=== PATIENT | male | born 1980 | race Caucasian/White ===

== ENCOUNTER 2018-11-10 19:43 | Observation (INO) ==
--- NOTE | 2018-11-10 20:10 | Emergency Department Note ---
Disposition Clinical Impression: Dehydration Disposition: Admitted As Inpatient Condition: Fair Referrals: NONE,PCP [Non-Partnered Physician] - Forms: ED Satisfaction Letter, Work/School Release Time of Disposition: 22:15 General Adult HPI - General Chief complaint: ED General Medical Stated complaint: Not eating X 3 days, no BM x 3 days Time Seen by Provider: 11/10/18 19:56 Source: family Mode of arrival: private vehicle Limitations: no limitations Nursing Notes Reviewed: Yes Vital Signs Reviewed: Yes - History of Present Illness HPI Narrative: Patient has history of cervical palsy, wheelchair bound, nonverbal. Over the past 3 days he has not been eating. He has not had a bowel movement in 3 days. Normally he has a bowel movement every other day. He seems to be calling out in discomfort but he calls out for any kind of discomfort and is not specific for pain versus anything else. They have not noted any associated fevers or vomiting. They do note that he is not as active as usual. He saw his laboratory inspector today and they advised to have him brought here for evaluation for bowel obstruction. Pt Subjective Complaint: Not eating and constipated and calling out in discomfort Pain Scale: 0 - Related Data Home Medications Medication Instructions Recorded Confirmed Cholecalciferol (D-3) [Vitamin D] 2,000 unit PO DAILY 08/21/17 11/10/18 Dantrolene Sodium [Dantrium] 25 mg PO BID 08/21/17 11/10/18 Divalproex (12 HR) [Depakote (12 1,500 mg PO HS 08/21/17 11/10/18 HR)] Divalproex (12 HR) [Depakote (12 500 mg PO [facility] 08/21/17 11/10/18 HR)] LevETIRAcetam [Keppra] 500 mg PO BID 08/21/17 11/10/18 PHENobarbital [Phenobarbital] 60 mg PO HS 08/21/17 11/10/18 risperiDONE [Risperdal] 0.25 mg PO BID 08/21/17 11/10/18 Crestor 10 mg PO DAILY 11/15/17 11/10/18 Lamotrigine 10 mg PO BID 11/15/17 11/10/18 Albuterol Sulfate [Albuterol 2 puff IH Q4HR PRN 11/10/18 11/10/18 Inhaler] Aspirin [Lo-Dose Aspirin EC] 81 mg PO DAILY 11/10/18 11/10/18 Bifidobacterium Infantis [Align] 10.5 mg PO DAILY 11/10/18 11/10/18 Icosapent Ethyl [Vascepa] 1 gm PO BID 11/10/18 11/10/18 Insulin Glargine [Lantus] 20 unit SQ DAILY 11/10/18 11/10/18 Losartan Potassium 25 mg PO DAILY 11/10/18 11/10/18 Melatonin 10 mg PO DAILY 11/10/18 11/10/18 Repaglinide [Prandin] 1 mg PO DAILY 11/10/18 11/10/18 SitaGLIPtin [Januvia] 100 mg PO DAILY 11/10/18 11/10/18 Allergies Allergy/AdvReac Type Severity Reaction Status Date / Time No Known Allergies Allergy Verified 11/15/17 09:52 Constitutional: Denies: fever Respiratory: Denies: cough, dyspnea Gastrointestinal: Reports: constipation. Denies: vomiting Integumentary: Denies: rash Past Medical History - Past Medical History Attestation: Yes The following information was validated with the patient. Source: old records reviewed, obtained from family, nursing notes reviewed Medical history: Reports: diabetes, seizures, other Surgical history: Reports: non-contributory Psychiatric history: Reports: no psych history - Social History Smoking Status: Never smoker Smokeless Tobacco Status: No Alcohol use: Reports: none Drug use: Reports: none Physical Exam - General Limitations: no limitations General appearance: alert, in no apparent distress - Head Head exam: atraumatic, normocephalic, normal inspection - Eye Eye exam: Present: normal appearance, PERRL, EOMI. Absent: scleral icterus, conjunctival injection - ENT ENT exam: normal exam, normal oropharynx, mucous membranes moist, normal external ear exam - Neck Neck exam: Present: trachea midline. Absent: tenderness - Chest Chest inspection: Present: normal inspection, symmetric chest wall rise. Abs ent: tenderness - Respiratory Respiratory exam: Present: normal lung sounds bilaterally. Absent: respiratory distress, wheezes - Cardiovascular Cardiovascular exam: Present: normal rhythm, tachycardia, normal heart sounds - Abdominal Exam Abdominal exam: Present: soft, Non-Tender, diminished bowel sounds. Absent: distention - Extremities Exam Extremities exam: Present: other (Chronic lymphedema to bilateral lower extremities.) - Neurological Exam Neurological exam: Present: alert - Skin Skin exam: Present: warm, dry. Absent: rash Course Course Narrative: Nonverbal patient presents with not eating for couple of days and no bowel movement for couple of days. Not having a bowel movement for 3 days when he normally have a bowel movement every 2 days is not sounding like a big concern. His belly is not distended. He does not appear to have any tenderness palpation of his belly. However he did have diminished bowel sounds. Is also not eating but is not vomiting either. History is difficult and physical exam is difficult. We will do a workup including imaging. Disposition will be based on diagnostic results and reevaluation. - Reevaluation(s) Reevaluation #1: CT did not show any acute pathology. Blood work shows hemoconcentration and a bicarbonate of only 9. Urine shows dehydration as well. With these numbers and the patient's mental status, were not admitted to the hospital for IV hydration. I discussed the case with the hospice already. Time: 22:15 - Consultations Consultation #1: Dr. Emerson, hospitalist - discussed the case with the hospice. Patient will be admitted to the hospital for hydration and management. Time: 22:15 Vital Signs Temperature 97.7 F 11/10/18 19:45 Pulse Rate 120 11/10/18 19:45 Respiratory Rate 18 11/10/18 19:45 Blood Pressure 127/75 11/10/18 19:45 O2 Sat by Pulse Oximetry 98 11/10/18 19:45 Temperature 97.7 F 11/10/18 19:45 Pulse Rate 120 11/10/18 19:45 Respiratory Rate 18 11/10/18 19:45 Blood Pressure 127/75 11/10/18 19:45 O2 Sat by Pulse Oximetry 98 11/10/18 19:45 Oxygen Delivery Oxygen Delivery Room Air Medical Decision Making - Lab Data Lab results reviewed: Yes I reviewed the patient's lab results. Result diagrams: 11/10/18 20:49 11/10/18 20:49 Lab Results 11/10/18 11/10/18 11/10/18 Range/Units 20:25 20:49 20:49 WBC 6.0 (4.3-11.1) K/mcL RBC 5.68 H (4.19-5.50) M/mcL Hgb 18.4 H (12.9-16.9) g/dL Hct 53.9 H (37.5-50.1) % MCV 94.9 (83.0-100.0) fL MCH 32.4 (28.0-33.3) pg MCHC 34.1 (31.6-35.5) g/dL RDW 14.5 (11.5-14.5) % Plt Count 180 (140-400) K/mcL MPV 9.6 (9.4-12.4) fL Immature Gran % 3.7 (0-4) % Seg Neutrophils % 58.1 % Lymphocytes % 26.6 % Monocytes % 10.1 % Eosinophils % 0.3 % Basophils % 1.2 % Neutrophils # 3.5 (1.6-8.9) K/mcL Lymphocytes # 1.6 (0.6-4.6) K/mcL Monocytes # 0.6 (0.0-1.3) K/mcL Eosinophils # 0.0 (0.0-0.6) K/mcL Basophils # 0.1 (0.0-0.2) K/mcL Sodium 137 (136-145) mEq/L Potassium 3.6 (3.5-5.1) mEq/L Chloride 102 (98-107) mEq/L Carbon Dioxide 9 L* (23-29) mEq/L BUN 5 L (6-20) mg/dL Creatinine 0.91 (0.70-1.30) mg/dL Est GFR ( Amer) > 60 (> 60) Est GFR (Non-Af Amer) > 60 (> 60) BUN/Creatinine Ratio 5 L (6-26) Glucose 247 H (70-105) mg/dL Calculated Osmolality 290 (280-300) Lactic Acid (0.5-2.2) mmol/L Calcium 10.3 (8.6-10.3) mg/dL Total Bilirubin 0.4 (0.3-1.0) mg/dL Direct Bilirubin 0.1 (0.0-0.2) mg/dL Indirect Bilirubin 0.3 (0.0-1.2) mg/dL AST 13 (13-39) Units/L ALT 10 (7-52) Units/L Alkaline Phosphatase 58 (34-104) Units/L Troponin I < 0.03 (< 0.04) ng/mL Serum Total Protein 8.4 (6.4-8.9) g/dL Albumin 5.2 (3.5-5.7) g/dL Globulin 3.2 (2.4-3.5) g/dL Albumin/Globulin Ratio 1.6 (1.1-2.2) Lipase 24 (11-82) Units/L Urine Color Yellow (Yellow) Urine Clarity Clear (Clear) Urine pH 5.5 (5.0-8.0) pH Units Ur Specific [place] 1.025 (1.010-1.025) Urine Protein 100 H (Neg-Trace) mg/dL Urine Glucose (UA) 500 H (Normal) mg/dL Urine Ketones >=160 H (Negative) mg/dL Urine Blood Moderate H (Negative) Urine Nitrite Negative (Negative) Urine Bilirubin Moderate H (Negative) Urine Urobilinogen Normal (Normal) mg/dL Ur Leukocyte Esterase Negative (Negative) Urine Microscopic RBC 0-3 (0-3) per hpf Urine Microscopic WBC 0-3 (0-3) per hpf Ur Squamous Epith Cells Few (None-Few) per lpf Urine Bacteria Few (None-Few) per hpf Hyaline Casts Few (None-Few) per lpf Urine Mucus Few (Few) Ur Culture Indicated? NO (NO) 11/10/18 Range/Units 20:49 WBC (4.3-11.1) K/mcL RBC (4.19-5.50) M/mcL Hgb (12.9-16.9) g/dL Hct (37.5-50.1) % MCV (83.0-100.0) fL MCH (28.0-33.3) pg MCHC (31.6-35.5) g/dL RDW (11.5-14.5) % Plt Count (140-400) K/mcL MPV (9.4-12.4) fL Immature Gran % (0-4) % Seg Neutrophils % % Lymphocytes % % Monocytes % % Eosinophils % % Basophils % % Neutrophils # (1.6-8.9) K/mcL Lymphocytes # (0.6-4.6) K/mcL Monocytes # (0.0-1.3) K/mcL Eosinophils # (0.0-0.6) K/mcL Basophils # (0.0-0.2) K/mcL Sodium (136-145) mEq/L Potassium (3.5-5.1) mEq/L Chloride (98-107) mEq/L Carbon Dioxide (23-29) mEq/L BUN (6-20) mg/dL Creatinine (0.70-1.30) mg/dL Est GFR ( Amer) (> 60) Est GFR (Non-Af Amer) (> 60) BUN/Creatinine Ratio (6-26) Glucose (70-105) mg/dL Calculated Osmolality (280-300) Lactic Acid 2.3 H (0.5-2.2) mmol/L Calcium (8.6-10.3) mg/dL Total Bilirubin (0.3-1.0) mg/dL Direct Bilirubin (0.0-0.2) mg/dL Indirect Bilirubin (0.0-1.2) mg/dL AST (13-39) Units/L ALT (7-52) Units/L Alkaline Phosphatase (34-104) Units/L Troponin I (< 0.04) ng/mL Serum Total Protein (6.4-8.9) g/dL Albumin (3.5-5.7) g/dL Globulin (2.4-3.5) g/dL Albumin/Globulin Ratio (1.1-2.2) Lipase (11-82) Units/L Urine Color (Yellow) Urine Clarity (Clear) Urine pH (5.0-8.0) pH Units Ur Specific [place] (1.010-1.025) Urine Protein (Neg-Trace) mg/dL Urine Glucose (UA) (Normal) mg/dL Urine Ketones (Negative) mg/dL Urine Blood (Negative) Urine Nitrite (Negative) Urine Bilirubin (Negative) Urine Urobilinogen (Normal) mg/dL Ur Leukocyte Esterase (Negative) Urine Microscopic RBC (0-3) per hpf Urine Microscopic WBC (0-3) per hpf Ur Squamous Epith Cells (None-Few) per lpf Urine Bacteria (None-Few) per hpf Hyaline Casts (None-Few) per lpf Urine Mucus (Few) Ur Culture Indicated? (NO) - Radiology Data Radiology results reviewed: Yes I reviewed the patient's radiology results.
[2018-11-10] MEDS ORDERED: 0.9 % Sodium Chloride 1,000 ML IVC ONE (20:12)
[2018-11-10 20:40] LABS: Bilirubin,Urine Moderate (Negative); Blood,Urine Moderate (Negative); Clarity,Urine Clear (Clear); Color,Urine Yellow (Yellow); Glucose,Urine (UA) 500 mg/dL (Normal); Ketones,Urine >=160 mg/dL (Negative); Leukocyte Esterase,Urine Negative (Negative); Nitrite,Urine Negative (Negative); PH,Urine 5.5 pH Units (5.0-8.0); Protein,Urine 100 mg/dL (Neg-Trace); Specific Gravity,Urine 1.025 (1.010-1.025); Urobilinogen,Urine Normal (Normal)
[2018-11-10 20:48] LABS: Bacteria,Urine Few per hpf (None-Few); Hyaline Casts,Urine Few per lpf (None-Few); RBC,Urine 0-3 per hpf (0-3); Squamous Epithelial Cell,Urine Few per lpf (None-Few); WBC,Urine 0-3 per hpf (0-3)
[2018-11-10 20:49] LABS: Mucus,Urine Few (Few)
[2018-11-10 21:02] LABS: Basophils # 0.1 K/mcL (0.0-0.2); Basophils % 1.2 %; Eosinophils % 0.3 %; Hematocrit 53.9 % (37.5-50.1); Hemoglobin 18.4 g/dL (12.9-16.9); Immature Granulocytes % 3.7 % (0-4); Lymphocytes # 1.6 K/mcL (0.6-4.6); Lymphocytes % 26.6 %; Mean Corpuscular HGB Conc 34.1 g/dL (31.6-35.5); Mean Corpuscular Hemoglobin 32.4 pg (28.0-33.3); Mean Corpuscular Volume 94.9 fL (83.0-100.0); Mean Platelet Volume 9.6 fL (9.4-12.4); Monocytes # 0.6 K/mcL (0.0-1.3); Monocytes % 10.1 %; Neutrophils # 3.5 K/mcL (1.6-8.9); Platelet Count 180 K/mcL (140-400); Red Blood Count 5.68 M/mcL (4.19-5.50); Red Cell Distribution Width 14.5 % (11.5-14.5); Segmented Neutrophils % 58.1 %
[2018-11-10 21:54] LABS: Alanine Aminotransferase 10 Units/L (7-52); Albumin 5.2 g/dL (3.5-5.7); Albumin/Globulin Ratio 1.6 (1.1-2.2); Alkaline Phosphatase 58 Units/L (34-104); Aspartate Amino Transferase 13 Units/L (13-39); BUN/Creatinine Ratio 5 (6-26); Bilirubin,Direct 0.1 mg/dL (0.0-0.2); Bilirubin,Indirect 0.3 mg/dL (0.0-1.2); Bilirubin,Total 0.4 mg/dL (0.3-1.0); Blood Urea Nitrogen 5 mg/dL (6-20); Calcium 10.3 mg/dL (8.6-10.3); Carbon Dioxide 9 mEq/L (23-29); Chloride 102 mEq/L (98-107); Globulin 3.2 g/dL (2.4-3.5); Glucose 247 mg/dL (70-105); Lipase 24 Units/L (11-82); Osmolality,Calculated 290 (280-300); Potassium 3.6 mEq/L (3.5-5.1); Sodium 137 mEq/L (136-145); Total Protein 8.4 g/dL (6.4-8.9); Troponin I < 0.03 ng/mL (< 0.04); eGFR For Non-African Americans > 60 (> 60)
[2018-11-10] MEDS ORDERED: Naloxone 0.4 MG/ML INJ IVP PRN (22:48)
[2018-11-10] MEDS ORDERED: PHENobarbital 32.4 MG TABLET PO ONE (23:30)
[2018-11-10] MEDS: 0.9 % Sodium Chloride 1,000 ML IVC SCH (23:30)
[2018-11-10] MEDS ORDERED: Divalproex (12 HR) 250 MG TABLET PO ONE ×2 (23:30→23:45)
[2018-11-10] MEDS: levETIRAcetam 250 MG TABLET PO SCH (23:53)
[2018-11-10] MEDS: risperiDONE 0.25 MG TABLET PO SCH (23:53)
[2018-11-10] MEDS: lamoTRIgine 100 MG TABLET PO SCH (23:53)
[2018-11-11] MEDS ORDERED: MOM Conc 10 ML UD.LIQ PO PRN (05:34)
[2018-11-11 06:27] LABS: BUN/Creatinine Ratio 7 (6-26); Blood Urea Nitrogen 6 mg/dL (6-20); Calcium 9.4 mg/dL (8.6-10.3); Carbon Dioxide 6 mEq/L (23-29); Chloride 111 mEq/L (98-107); Glucose 288 mg/dL (70-105); Osmolality,Calculated 300 (280-300); Potassium 3.6 mEq/L (3.5-5.1); Sodium 141 mEq/L (136-145); eGFR For Non-African Americans > 60 (> 60)
[2018-11-11 07:03] LABS: ABG Base Excess -21 mEq/L (-2 to 3); ABG HCO3 6 mEq/L (21-27); ABG Oxygen Saturation 96 % (95-98); ABG PCO2 18 mmHg (35-45); ABG PH 7.14 pH Units (7.32-7.45); ABG PO2 101 mmHg (85-104); ABG TCO2 7 mEq/L (20-26)
[2018-11-11] MEDS ORDERED: Dextrose Gel 15 GM/37.5 ML TUBE PO PRN ×2 (08:13)
[2018-11-11] MEDS ORDERED: *HR* Dextrose 50 % in Water (Vial) 50 ML VIAL IVP PRN (08:13)
[2018-11-11] MEDS ORDERED: D5% in Water 1,000 ML IVC PRN (08:13)
[2018-11-11] MEDS ORDERED: Lactobacillus 1 EACH CAP.SPRINK PO SCH (09:00)
[2018-11-11] MEDS ORDERED: *HR* Repaglinide 1 MG TABLET PO SCH (09:00)
[2018-11-11] MEDS ORDERED: Insulin DETEMIR 100 UNIT/ML X5UNITS SQ SCH (09:00)
[2018-11-11] MEDS ORDERED: NON-FORMULARY MEDICATION 1 EACH EACH (Insulin Glargine [Lantus] 20 UNIT) SQ SCH (09:00)
[2018-11-11] MEDS ORDERED: Icosapent Ethyl [Vascepa] 1 GM PO SCH (09:00)
[2018-11-11] MEDS ORDERED: Divalproex (12 HR) 250 MG TABLET PO SCH (09:00)
[2018-11-11] MEDS ORDERED: Cholecalciferol (D-3) 1,000 UNIT TABLET PO SCH (09:00)
[2018-11-11] MEDS ORDERED: Aspirin Enteric Coated 81 MG Tablet PO SCH (09:00)
[2018-11-11] MEDS ORDERED: *HR* SitaGLIPtin 25 MG TABLET PO SCH (09:00)
[2018-11-11] MEDS: levETIRAcetam 250 MG TABLET PO SCH (09:02)
[2018-11-11] MEDS: lamoTRIgine 100 MG TABLET PO SCH (09:04)
[2018-11-11] MEDS: risperiDONE 0.25 MG TABLET PO SCH (09:06)
[2018-11-11] MEDS ORDERED: 0.45 % Sodium Chloride w/KCl 20 MEQ/1,000 ML MLS IVC SCH (10:15)
--- NOTE | 2018-11-11 10:23 | Internal Med History&Physical ---
Date of Encounter: 11/11/18 Time of Encounter: 09:35 Assessment and Plan (1) Metabolic acidosis Current visit: Yes Status: Acute Increased anion gap metabolic acidosis, likely due to elevated lactic acid (now resolved) and ketoacidosis. IV fluids and insulin will be given as needed. (2) DKA (diabetic ketoacidoses) Current visit: Yes Status: Acute As above Qualifiers: Diabetes mellitus type: other specified (including MONISHA) Diabetes mellitus complication detail: without coma Qualified Code(s): E13.10 - Other specified diabetes mellitus with ketoacidosis without coma (3) Dehydration Current visit: Yes Status: Acute Continue IV fluids and monitor labs. (4) Hypomagnesemia Current visit: Yes Status: Acute Magnesium level has returned low at 1.5. Magnesium oxide will be ordered. (5) Hypophosphatemia Current visit: Yes Status: Acute Phosphorus level low at 1.9. Neutra-Phos will be given. (6) Elevated hemoglobin Current visit: Yes Status: Acute Likely due to hemoconcentration. IV fluids will be given and labs will be monitored. (7) Hypertension Current visit: Yes Status: Chronic Blood pressure is borderline low. Losartan will be held. Qualifiers: Hypertension type: essential hypertension Qualified Code(s): I10 - Essential (primary) hypertension Internal Medicine - H&P: HPI Chief complaint: Lethargy, weakness Admitted From: Emergency Dept Plans for Post Hospital Care: Home History of present illness: Mr. Dunn is a 38 year old male who came to emergency room after he had decreased oral intake and increasing lethargy over the past 3 days. He had 2 ep isodes of vomiting last evening. He did not seem to have symptoms of pain. (He is minimally verbal due to cerebral palsy). He was evaluated in emergency room and was found to have elevated hemoglobin, metabolic acidosis, and possible dehydration. He was admitted to [facility] floor for ongoing care needs. Past Med Surg Social Fam HX - Past Medical History Medical history: diabetes, seizures, other Additional medical history: CP Psychiatric history: no psych history - Past Surgical History Surgical History: non-contributory Additional surgical history: left leg surg. LORE. LEG SURGERY. HYDROCELE REPAIR - Social History Smoking Status: Never smoker Smokeless Tobacco Status: No Alcohol use: none Drug use: none Internal Medicine - H&P: Meds Cholecalciferol (D-3) [Vitamin D] 2,000 unit PO DAILY 08/21/17 [History] Dantrolene Sodium [Dantrium] 25 mg PO BID 08/21/17 [History] Divalproex (12 HR) [Depakote (12 HR)] 1,500 mg PO HS 08/21/17 [History] Divalproex (12 HR) [Depakote (12 HR)] 500 mg PO QAM 08/21/17 [History] LevETIRAcetam [Keppra] 500 mg PO BID 08/21/17 [History] PHENobarbital [Phenobarbital] 60 mg PO HS 08/21/17 [History] risperiDONE [Risperdal] 0.25 mg PO BID 08/21/17 [History] Crestor 10 mg PO DAILY 11/15/17 [History] Lamotrigine 100 mg PO BID 11/15/17 [History] Albuterol Sulfate [Albuterol Inhaler] 2 puff IH Q4HR PRN 11/10/18 [History] Aspirin [Lo-Dose Aspirin EC] 81 mg PO DAILY 11/10/18 [History] Bifidobacterium Infantis [Align] 10.5 mg PO DAILY 11/10/18 [History] Icosapent Ethyl [Vascepa] 1 gm PO BID 11/10/18 [History] Insulin Glargine [Lantus] 20 unit SQ DAILY 11/10/18 [History] Losartan Potassium 25 mg PO DAILY 11/10/18 [History] Melatonin 10 mg PO DAILY 11/10/18 [History] Repaglinide [Prandin] 1 mg PO DAILY 11/10/18 [History] SitaGLIPtin [Januvia] 100 mg PO DAILY 11/10/18 [History] Allergy/AdvReac Type Severity Reaction Status Date / Time No Known Allergies Allergy Verified 11/15/17 09:52 All Systems PM: A 10-system review of systems was performed and is negative for pertinent findings except as documented above in the HPI. Review of systems: Review of systems is obtained from patient's mother since patient is nonverbal Gen.: She states his weight has been stable for several months Cardiovascular: He has history of hypertension but no known ND heart failure angina DVT or pulmonary embolus Respiratory: He is a lifelong nonsmoker and has no known chronic lung disease. He has chronic elevation of right hemidiaphragm. 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 He follows with a neurologist in [place]. No history of large distribution strokes. He has cerebral palsy Endocrine: He was diagnosed with diabetes approximately one year ago and follows with an cotton breeder. Hemoglobin A1c was 8.6% on 11/01/2018. He has hyperlipidemia but no known thyroid disease Hematology/oncology: No history of blood disorders cancers or anemia Psychiatric: No diagnosed anxiety depression or other mental health issues Muscle skeletal: He had left hip fracture 2016 following a fall off the toilet. Surgical intervention was not done since he has not ambulated since age 13. He has had previous surgeries on his legs because of contractures/deformities. - Constitutional Vitals: Temp Pulse Resp BP Pulse Ox 98.6 F 123 22 115/74 97 11/11/18 06:40 11/11/18 06:40 11/11/18 06:40 11/11/18 06:40 11/11/18 06:40 Exam: Gen.: He is a well-developed well-nourished male resting comfortably in bed who appears in no acute distress HEENT: Head is atraumatic and normocephalic. Eyes: EOMI. There is no scleral icterus. Mouth: He does not open his mouth well for examination. Neck: There is no thyromegaly or adenopathy noted. Heart: Regular with rate approximately 128/m. No murmurs or gallops are heard. Lungs: No wheezes or crackles are heard. Abdomen: Soft and nontender. No masses or guarding are noted. Extremities: There is no cyanosis. He has marked lymphedema of the dorsum of the feet. The left lower leg is wrapped in elastic wrap which I did not unwrap. Neurologic: Mental status: He is lethargic and does not respond significantly to voice or light touch. He opens his eyes on movement of his head but makes no attempt to speak. Cranial nerves: Facial movements are minimal. He is not protrudes his tongue. His gaze appears to be conjugate. Motor: He does not move his arms spontaneously. He has equal arm tone on passive range of motion. No further neurologic testing is attempted. Skin: Warm and dry Internal Med - H&P Results - Labs CBC & Chem 7: 11/10/18 20:49 11/11/18 05:46 Labs: Short CBC 11/10/18 Range/Units 20:49 WBC 6.0 (4.3-11.1) K/mcL Hgb 18.4 H (12.9-16.9) g/dL Hct 53.9 H (37.5-50.1) % Plt Count 180 (140-400) K/mcL Neutrophils # 3.5 (1.6-8.9) K/mcL BMP 11/10/18 11/11/18 20:49 05:46 Sodium 137 141 Potassium 3.6 3.6 Chloride 102 111 H Carbon Dioxide 9 L* 6 L* BUN 5 L 6 Creatinine 0.91 0.81 Glucose 247 H 288 H Calcium 10.3 9.4 Cardiac Enzymes 11/10/18 Range/Units 20:49 Troponin I < 0.03 (< 0.04) ng/mL Liver Function 11/10/18 Range/Units 20:49 Total Bilirubin 0.4 (0.3-1.0) mg/dL Direct Bilirubin 0.1 (0.0-0.2) mg/dL AST 13 (13-39) Units/L ALT 10 (7-52) Units/L Alkaline Phosphatase 58 (34-104) Units/L Albumin 5.2 (3.5-5.7) g/dL Urine 11/10/18 Range/Units 20:25 Urine Color Yellow (Yellow) Urine Clarity Clear (Clear) Urine pH 5.5 (5.0-8.0) pH Units Ur Specific [place] 1.025 (1.010-1.025) Urine Protein 100 H (Neg-Trace) mg/dL Urine Glucose (UA) 500 H (Normal) mg/dL - ABG Interpretation ABG results: 11/11/18 06:58 ABG pH 7.14 L* ABG pCO2 18 L* ABG pO2 101 ABG HCO3 6 L ABG Total CO2 7 L ABG O2 Saturation 96 ABG Base Excess -21 L - Impressions ITS Impressions Abdomen/Pelvis CT 11/10/18 20:06 IMPRESSION: 1. Study limited by patient motion artifact. 2. No acute process within the abdomen or pelvis. 3. No urinary stones or hydronephrosis. 4. Stable hepatic cysts. D/ / 11/10/2018 21:45:18 Josh Ricketts MD / danisha Interpreting Provider: Josh Ricketts MD Chest X-Ray 11/10/18 20:06 IMPRESSION: Bibasilar atelectasis. D/ / Taye Higginbotham MD / Taye Higginbotham MD Interpreting Provider: Taye Higginbotham MD - VTE Reasons for not Prescribing Prophylaxis: Medical contraindication
[2018-11-11 10:36] LABS: Magnesium 1.5 mg/dL (1.6-2.6); Phosphorous 1.9 mg/dL (2.7-4.5)
[2018-11-11] MEDS ORDERED: Insulin LISPRO 300 UNITS/3 ML VIAL SQ SCH ×2 (11:30→21:00)
[2018-11-11] MEDS: Insulin LISPRO 300 UNITS/3 ML VIAL SQ SCH ×2 (12:37→17:29)
[2018-11-11 14:00] LABS: ABG Base Excess -21 mEq/L (-2 to 3); ABG HCO3 5 mEq/L (21-27); ABG Oxygen Saturation 97 % (95-98); ABG PCO2 15 mmHg (35-45); ABG PH 7.15 pH Units (7.32-7.45); ABG PO2 111 mmHg (85-104); ABG TCO2 6 mEq/L (20-26)
[2018-11-11] MEDS: 0.9 % Sodium Chloride 1,000 ML IVC SCH (14:44)
[2018-11-11] MEDS ORDERED: Isovue-370 500 ML BOTTLE IVP ONE (14:54)
[2018-11-11] MEDS ORDERED: *HR* Propranolol 1 MG/ML VIAL IVP ONE (14:56)
--- NOTE | 2018-11-11 17:21 | Electrocardiograph Report ---
[address] [address] Test Date: 2018-11-11 Pat Name: Antoine Dunn Department: [id number] Room: [facility] Gender: M Payroll Associate: [id number] : 1980 Requested By: Roger Emerson Order Number: [id number] Reading MD: Nhung Etienne Measurements Intervals [place] Rate: 131 P: 78 SD: 116 QRS: 42 QRSD: 88 T: -63 QT: 326 QTc: 403 Interpretive Statements SINUS TACHYCARDIA PROBABLY RESPIRATORY ARTIFACT Electronically Signed On 11-11-2018 17:20:13 EDT by Nhung Etienne
[2018-11-11 18:28] VITALS: BP 121/75
--- NOTE | 2018-11-11 19:12 | Discharge Summary ---
Orders not resulted at time of discharge: Pending orders 11/10/18 20:25 Urinalysis Reflex Cult & Micro [URIN] Stat 11/10/18 20:49 Culture,Blood [BC] Stat 11/11/18 14:57 Phenobarbital Routine 11/12/18 04:00 Beta-Hydroxybutyric Acid AM 0400 Complete Blood Count [HEME] AM 0400 Comprehensive Metabolic Panel AM 0400 Phenobarbital AM 0400 Phosphorous AM 0400 Date of Encounter: 11/11/18 Time of Encounter: 18:45 - Discharge Diagnosis (1) Metabolic acidosis Priority: Primary Status: Acute (2) DKA (diabetic ketoacidoses) Priority: Secondary Status: Acute Qualifiers: Diabetes mellitus type: other specified (including MONISHA) Diabetes mellitus complication detail: without coma Qualified Code(s): E13.10 - Other specified diabetes mellitus with ketoacidosis without coma (3) Dehydration Priority: Secondary Status: Acute (4) Hypomagnesemia Priority: Secondary Status: Acute (5) Hypophosphatemia Priority: Secondary Status: Acute (6) Elevated hemoglobin Priority: Secondary Status: Acute (7) Hypertension Priority: Secondary Status: Chronic Qualifiers: Hypertension type: essential hypertension Qualified Code(s): I10 - Essential (primary) hypertension Hospital course: Mr. Dunn is a 38 year old male who came to emergency room after he had decreased oral intake and increasing lethargy over the past 3 days. He had 2 episodes of vomiting last evening. He did not seem to have symptoms of pain. (He is minimally verbal due to cerebral palsy). He was evaluated in emergency room and was found to have elevated hemoglobin, metabolic acidosis, and possible dehydration. He was admitted to [facility] floor for ongoing care needs. Initial orders were written by the emergency room physician. I saw him the morning of November 11 and performed a history and physical. By the time I saw him lactic acidosis had resolved. Beta hydroxybutyrate returned > 2.00 mmol/l. He was given IV fluids and Accu-Cheks with SSI to treat DKA. ABG showed expected respiratory alkalosis from underlying DKA. D-dimer returned elevated at 1565. Chest CT was done but no evidence of pulmonary embolism was seen in central arteries. There was some respiratory motion artifact. There was severely dilated fluid-filled stomach and esophagitis with suggestion of wall thickening in the descending duodenum possibly representing infectious or inflammatory duodenitis. Gastroparesis was also possible. I had a discussion with patient's mother the afternoon of November 11 and shared laboratory and radiological results with her. I told her the etiology of his lethargy was not determined with certainty. We agreed he should have examination by a neurologist and contact was made with [facility] for transfer. - Time Spent with Patient Total time spent providing and/or coordinating discharge services: - Discharge Medications Prescriptions: No Action Cholecalciferol (D-3) [Vitamin D] 2,000 unit PO DAILY Divalproex (12 HR) [Depakote (12 HR)] 1,500 mg PO HS PHENobarbital [Phenobarbital] 60 mg PO HS Dantrolene Sodium [Dantrium] 25 mg PO BID Divalproex (12 HR) [Depakote (12 HR)] 500 mg PO QAM LevETIRAcetam [Keppra] 500 mg PO BID risperiDONE [Risperdal] 0.25 mg PO BID Lamotrigine 100 mg PO BID Crestor 10 mg PO DAILY SitaGLIPtin [Januvia] 100 mg PO DAILY Icosapent Ethyl [Vascepa] 1 gm PO BID Bifidobacterium Infantis [Align] 10.5 mg PO DAILY Aspirin [Lo-Dose Aspirin EC] 81 mg PO DAILY Melatonin 10 mg PO DAILY Repaglinide [Prandin] 1 mg PO DAILY Losartan Potassium 25 mg PO DAILY Albuterol Sulfate [Albuterol Inhaler] 2 puff IH Q4HR PRN PRN Reason: Dyspnea Insulin Glargine [Lantus] 20 unit SQ DAILY Home Medications: Cholecalciferol (D-3) [Vitamin D] 2,000 unit PO DAILY 08/21/17 [History] Dantrolene Sodium [Dantrium] 25 mg PO BID 08/21/17 [History] Divalproex (12 HR) [Depakote (12 HR)] 1,500 mg PO HS 08/21/17 [History] Divalproex (12 HR) [Depakote (12 HR)] 500 mg PO QAM 08/21/17 [History] LevETIRAcetam [Keppra] 500 mg PO BID 08/21/17 [History] PHENobarbital [Phenobarbital] 60 mg PO HS 08/21/17 [History] risperiDONE [Risperdal] 0.25 mg PO BID 08/21/17 [History] Crestor 10 mg PO DAILY 11/15/17 [History] Lamotrigine 100 mg PO BID 11/15/17 [History] Albuterol Sulfate [Albuterol Inhaler] 2 puff IH Q4HR PRN 11/10/18 [History] Aspirin [Lo-Dose Aspirin EC] 81 mg PO DAILY 11/10/18 [History] Bifidobacterium Infantis [Align] 10.5 mg PO DAILY 11/10/18 [History] Icosapent Ethyl [Vascepa] 1 gm PO BID 11/10/18 [History] Insulin Glargine [Lantus] 20 unit SQ DAILY 11/10/18 [History] Losartan Potassium 25 mg PO DAILY 11/10/18 [History] Melatonin 10 mg PO DAILY 11/10/18 [History] Repaglinide [Prandin] 1 mg PO DAILY 11/10/18 [History] SitaGLIPtin [Januvia] 100 mg PO DAILY 11/10/18 [History] Allergies/Adverse Reactions: Allergy/AdvReac Type Severity Reaction Status Date / Time No Known Allergies Allergy Verified 11/15/17 09:52 Date of admission: 11/10/18 22:22 Primary care physician: Antoine Palafox, - Constitutional Vitals: Temp Pulse Resp BP Pulse Ox 98.0 F 116 19 121/75 97 11/11/18 18:26 11/11/18 18:26 11/11/18 18:26 11/11/18 18:26 11/11/18 18:26 - Patient Status Disposition: Transfer Other Condition: Fair - Discharge Instructions - VTE Reasons for not Prescribing Prophylaxis: Medical contraindication
[2018-11-11] MEDS ORDERED: Divalproex (12 HR) 500 MG TABLET PO SCH (21:00)
[2018-11-11] MEDS ORDERED: Melatonin 3 MG TABLET PO SCH (21:00)
[2018-11-11] MEDS ORDERED: PHENobarbital 15 MG TABLET PO SCH (21:00)
[2018-11-12] MEDS ORDERED: Magnesium Oxide 400 MG TABLET PO SCH (09:00)
== END 2018-11-11 21:14 | disposition other institution (70) ==
LOC: INPPIK 19:43 → EMEROOPIK 19:43 → INPPIK 22:45
PROVIDERS: ADMIT Internal Medicine; ATTEND Internal Medicine